=== PATIENT | male | born 1940 | race Caucasian/White ===

== ENCOUNTER 2022-03-20 09:34 | Emergency (ER) | payer MEDICARE, BC ==
[2022-03-20 09:49] VITALS: BP 111/59; PULSE 87
== END 2022-03-20 10:22 | disposition home or self-care (01) ==
LOC: FB.ED 09:34
DX: S20.361A Insect bite (nonvenomous) of right front wall of thorax, initial encounter (principal); J06.9 Acute upper respiratory infection, unspecified; W57.XXXA Bitten or stung by nonvenomous insect and other nonvenomous arthropods, initial encounter
CPT/HCPCS: 99283

== ENCOUNTER 2022-06-19 10:24 | Emergency (ER) | payer MEDICARE, BC ==
[2022-06-19 12:21] VITALS: BP 112/84; PULSE 97
== END 2022-06-19 11:21 | disposition home or self-care (01) ==
LOC: FB.ED 10:24
DX: K04.7 Periapical abscess without sinus (principal); Z79.899 Other long term (current) drug therapy; Z79.82 Long term (current) use of aspirin
CPT/HCPCS: 99282